=== PATIENT | female | born 1945 | race Caucasian/White ===

== ENCOUNTER 2020-08-09 10:19 | Outpatient (REF) | payer MEDICARE, SELFPAY ==
[2020-08-09 11:32] LABS: MANUAL DIFF FLAG NO
[2020-08-09 11:35] LABS: Basophils Absolute Auto 0.1 X10*3/uL (0.0-0.2); Basophils Percent Auto 0.8 % (0-2); Eosinophils Absolute Auto 0.2 X10*3/uL (0.0-0.4); Eosinophils Percent Auto 3.5 % (0-4); Hematocrit 34.8 % (37-47); Hemoglobin 10.4 g/dl (12.0-16.0); Imm Gran Abs Auto 0.01 X10*3/uL (0.00-0.03); Imm Gran Pct Auto 0.2 % (0.0-0.4); Lymphocytes Absolute Auto 2.4 X10*3/uL (1.2-4.9); Lymphocytes Percent Auto 35.9 % (20-40); Mean Corpuscular HGB Conc 29.9 g/dl (31.0-35.0); Mean Corpuscular Hemoglobin 26.9 pg (27.0-33.0); Mean Corpuscular Volume 89.9 fL (80-98); Mean Platelet Volume 11.6 fL (9.4-12.3); Monocytes Absolute Auto 0.5 X10*3/uL (0.1-1.2); Monocytes Percent Auto 6.9 % (2-11); Neutrophils Absolute Auto 3.5 X10*3/uL (2.0-8.3); Neutrophils Percent Auto 52.7 % (45-73); Platelet Count 200 X10*3/uL (160-400); Red Blood Count 3.87 X10*6/uL (4.20-5.50); Red Cell Distribution Width 15.8 % (11.0-16.0); White Blood Count 6.5 X10*3/uL (4.8-10.8)
[2020-08-09 12:05] LABS: Alanine Aminotransferase 6 U/L (0-31); Albumin Level 3.5 g/dL (3.5-5.0); Alkaline Phosphatase 105 U/L (39-117); Anion Gap 13 (12-20); Aspartate Amino Transferase 12 U/L (5-31); Bilirubin Total 0.4 mg/dL (0.0-1.0); Blood Urea Nitrogen 18 mg/dL (9-16); C Reactive Protein 0.45 mg/dL (< or = 0.50); Calcium 8.4 mg/dL (8.4-10.2); Carbon Dioxide 30 mmol/L (22-29); Chloride 101 mmol/L (96-108); Estimated Glomerular Filt Rate 38; Glucose Random 335 mg/dL (60-115); Sodium 140 mmol/L (135-145)
[2020-08-09 12:24] LABS: Erythrocyte Sedimentation Rate 33 MM/HR (0-20)
== END 2020-08-09 10:20 | disposition home or self-care (01) ==
LOC: HO.LAB 10:19
PROVIDERS: PCP Internal Medicine; Referring Provider Internal Medicine; Visit Provider Student in an Organized Health Care Education/Training Program
DX: M35.3 Polymyalgia rheumatica (principal); M79.7 Fibromyalgia
CPT/HCPCS: 36415; 80053; 85025; 85652; 86140; 99212

== ENCOUNTER 2021-05-20 10:56 | Emergency (ER) | payer MEDICARE, SELFPAY ==
[2021-05-20 11:34] VITALS: BP 119/62; PULSE 92; RESP 18; TEMP 36.4; O2SAT 98; BMI 26.5
--- NOTE | 2021-05-20 11:39 | ED.GENADULT ---
HPI - General Adult General Chief complaint: General Medical Stated complaint: MEDICATION REFILLS Time Seen by Provider: 05/20/21 11:39 Source: patient Mode of arrival: ambulatory Limitations: no limitations History of Present Illness HPI narrative: 76 y/o female with history of fibromyalgia, polymyalgia rheumatica, DM, HTN, HLD who presents to the ER request refills on her multiple medications. She just moved back to [place] from [place] and there are issues with her doctor's office in [place] accepting her supplemental insurance. Her daughter is here with her today and is working on the issue now that she moved back home. [place] was in the airport [place] 18 hours without refrigerating her insulin so she has not taken it in a few days. Her glucose has been running in the high 200s. She otherwise has no physical complaints except anxiety about not having her meds or being able to see her doctor. MD complaint: med refills Relieving factors: none Exacerbating factors: none Associated symptoms: denies other symptoms Treatments prior to arrival: none Related Data Home Medications Medication Instructions Recorded Confirmed albuterol sulfate 2.5 mg INHALATION Q4-6H PRN 08/09/20 albuterol sulfate 90 mcg/actuation 2 puff INHALATION Q6H PRN 08/09/20 aerosol inhaler aspirin 81 mg tablet,delayed 81 mg PO DAILY 08/09/20 release (Enteric Coated Aspirin) atorvastatin 40 mg tablet 40 mg PO DAILY 08/09/20 calcium carbonate 600 mg (1,500 1 tab PO DAILY 08/09/20 mg)-vitamin D3 400 unit tablet (Calcium 600 + D(3)) cetirizine 10 mg capsule (All Day mg PO DAILY cap 08/09/20 Allergy (cetirizine)) clopidogrel 75 mg tablet 75 mg PO DAILY 08/09/20 famotidine 20 mg tablet 20 mg PO DAILY 08/09/20 hydrochlorothiazide 25 mg tablet 25 mg PO DAILY 08/09/20 insulin glargine 100 unit/mL (3 10 unit SUBCUT QPM 08/09/20 mL) subcutaneous pen (Lantus Solostar U-100 Insulin) metoprolol tartrate 100 mg tablet 100 mg PO DAILY 08/09/20 tolterodine 4 mg capsule,extended 4 mg PO DAILY 08/09/20 release 24 hr valsartan 80 mg tablet 80 mg PO DAILY 08/09/20 Previous Rx's Medication Instructions Recorded baclofen 10 mg tablet 5 mg PO BEDTIME #15 tab 06/27/20 tramadol 50 mg tablet 50 mg PO BID PRN #60 tab 06/27/20 gabapentin 600 mg tablet 600 mg PO TID #84 tab 08/23/20 omeprazole 20 mg capsule,delayed 20 mg PO BID #60 cap 12/15/20 release amitriptyline 25 mg tablet 25 mg PO BEDTIME #30 tab 02/21/21 folic acid 1 mg tablet 1 mg PO DAILY #96 tab 03/06/21 amitriptyline 25 mg tablet 25 mg PO BEDTIME #30 tab 05/20/21 aspirin 81 mg tablet,delayed 81 mg PO DAILY #30 tab 05/20/21 release atorvastatin 40 mg tablet 40 mg PO BEDTIME #30 tab 05/20/21 clopidogrel 75 mg tablet (Plavix) 75 mg PO DAILY #30 tab 05/20/21 hydrochlorothiazide 25 mg tablet 25 mg PO QAM #30 tab 05/20/21 insulin aspart U-100 100 unit/mL 1 sliding scale dose SUBCUT AC #15 05/20/21 subcutaneous cartridge (Novolog ml PenFill U-100 Insulin aspart) insulin glargine 100 unit/mL 20 unit SUBCUT QPM #10 ml 05/20/21 subcutaneous solution (Lantus U-100 Insulin) metformin 1,000 mg tablet,extended 1,000 mg PO BID #60 tab 05/20/21 release 24hr tolterodine 4 mg capsule,extended 4 mg PO DAILY #30 cap 05/20/21 release 24 hr valsartan 40 mg tablet 40 mg PO DAILY #30 tab 05/20/21 Allergies Allergy/AdvReac Type Severity Reaction Status Date / Time morphine [Morphine] Allergy Unknown UNKNOWN, Verified 05/20/21 11:36 nausea and vomiting Iodinated Contrast Media AdvReac Mild SHAKING, Verified 05/20/21 11:36 [IV Dye, Iodine Containing VOMITING Contrast ] IV dye Allergy Unknown Vomiting Uncoded 05/20/21 11:36 Review of Systems Review of Systems: Constitutional: No Fever, No Chills Cardiovascular: No Chest Pain, No SOB Respiratory: No Cough, No Sputum Gastrointestinal: No Nausea, No Vomiting, No Diarrhea, No abdominal Pain Musculoskeletal: + joint pain, No Myalgias Skin: No Skin Lesions, No rash Neuro: No Weakness, No Numbness, No Dizziness, No Headache Psych: + Anxiety/Panic, No Depression Endocrine: No Polyuria, No Polydipsia [facility] Past Medical History Medical History (Updated 05/20/21 @ 11:58 by VICENTA Cotton) A-fib CAD (coronary artery disease) COPD (chronic obstructive pulmonary disease) Diabetes Fibromyalgia HTN (hypertension) Hypercholesterolemia Polymyalgia rheumatica Scoliosis Sleep apnea Surgical History Hx of appendectomy Hx of hysterectomy Hx of tubal ligation Family History Family History (Updated 10/03/20 @ 07:36 by Nahomy Henderson) Mother Heart disease Sister Stomach cancer Daughter Breast cancer Social History Social History (Updated 08/09/20 @ 10:38 by Jose Do LPN) Alcohol intake: never Advance Directives: No Advance Directives Information Provided: Yes Physical Exam Vital Signs: Vital Signs: Last Vital Signs Temp 97.5 F 05/20/21 11:34 Pulse 92 05/20/21 11:34 Resp 18 05/20/21 11:34 BP 119/62 05/20/21 11:34 Pulse Ox 98 05/20/21 11:34 Body Mass Index 26.5 Appearance: Alert. Oriented X3. No acute distress. HEENT: normal inspection CVS: Normal heart rate and rhythm. Pulses normal. Respiratory: No respiratory distress. Skin: Skin warm and dry. Normal skin color. Normal skin turgor. No rashes. Extremities: atraumatic, no LE edema Neuro: Oriented X 3. No motor deficit. No sensory deficit. Course Course Course Narrative: 76 yo female presenting for medication refills including valsartan, HCTZ, aspirin, plavix, lantus, novolog SS, among others. Glucose 177 today. We discussed the importance of following up with her doctor and the daughter feels like the insurance issue should be resolved soon. She is hemodynamically stable and appears well. Meds were refilled for one month to give ample time to see her doctor. 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 Prescriptions: New atorvastatin 40 mg tablet 40 mg PO BEDTIME Qty: 30 RF: 0 amitriptyline 25 mg tablet 25 mg PO BEDTIME Qty: 30 RF: 0 hydrochlorothiazide 25 mg tablet 25 mg PO QAM Qty: 30 RF: 0 valsartan 40 mg tablet 40 mg PO DAILY Qty: 30 RF: 0 clopidogrel [Plavix] 75 mg tablet 75 mg PO DAILY Qty: 30 RF: 0 metformin 1,000 mg tablet extended release 24hr 1,000 mg PO BID Qty: 60 RF: 0 tolterodine 4 mg capsule,extended release 24hr 4 mg PO DAILY Qty: 30 RF: 0 aspirin 81 mg tablet,delayed release (DR/EC) 81 mg PO DAILY Qty: 30 RF: 0 Lantus U-100 Insulin 100 unit/mL solution 20 unit subcut QPM Qty: 10 RF: 0 insulin aspart U-100 [Novolog PenFill U-100 Insulin] 100 unit/mL cartridge 1 sliding scale dose subcut AC Qty: 15 RF: 0 No Action baclofen 10 mg tablet 5 mg PO BEDTIME Qty: 15 RF: 3 tramadol 50 mg tablet 50 mg PO BID PRN (Reason: pain) Qty: 60 RF: 5 gabapentin 600 mg tablet 600 mg PO TID Qty: 84 RF: 4 omeprazole 20 mg capsule,delayed release(DR/EC) 20 mg PO BID Qty: 60 RF: 5 amitriptyline 25 mg tablet 25 mg PO BEDTIME Qty: 30 RF: 3 folic acid 1 mg tablet 1 mg PO DAILY Qty: 96 RF: 0 calcium carbonate-vitamin D3 [Calcium 600 + D(3)] 600 mg(1,500mg) -400 unit tablet 1 tab PO DAILY RF: 0 valsartan 80 mg tablet 80 mg PO DAILY RF: 0 tolterodine 4 mg capsule,extended release 24hr 4 mg PO DAILY RF: 0 famotidine 20 mg tablet 20 mg PO DAILY RF: 0 clopidogrel 75 mg tablet 75 mg PO DAILY RF: 0 atorvastatin 40 mg tablet 40 mg PO DAILY RF: 0 albuterol sulfate 90 mcg/actuation HFA aerosol inhaler 2 puff inhalation Q6H PRNRF: 0 albuterol sulfate 2.5 mg /3 mL (0.083 %) solution for nebulization 2.5 mg inhalation Q4-6H PRNRF: 0 hydrochlorothiazide 25 mg tablet 25 mg PO DAILY RF: 0 All Day Allergy (cetirizine) 10 mg capsule PO DAILY RF: 0 aspirin [Enteric Coated Aspirin] 81 mg tablet,delayed release (DR/EC) 81 mg PO DAILY RF: 0 Lantus Solostar U-100 Insulin 100 unit/mL (3 mL) insulin pen 10 unit subcut QPM RF: 0 metoprolol tartrate 100 mg tablet 100 mg PO DAILY RF: 0 Interventions: ED Discharge Assessment Last Done: 05/20/21 12:00 Discharge Date/Time: 05/20/21 12:02
[2021-05-20 11:58] LABS: Glucose, Whole Blood 177 mg/dL (60-115)
== END 2021-05-20 12:02 | disposition home or self-care (01) ==
PROVIDERS: Emergency Provider Internal Medicine
DX: M35.3 Polymyalgia rheumatica (principal); E11.69 Type 2 diabetes mellitus with other specified complication; Z79.899 Other long term (current) drug therapy; Z79.4 Long term (current) use of insulin
CPT/HCPCS: 82947; 99283

== ENCOUNTER 2021-06-24 08:40 | Emergency (ER) | payer MEDICARE, MEDICAID, SELFPAY ==
[2021-06-24 09:03] VITALS: BP 173/63; PULSE 74; RESP 20; TEMP 36.2; O2SAT 100; BMI 25.2
--- NOTE | 2021-06-24 09:26 | ED.BACK ---
HPI - Back Pain/Injury General Chief Complaint: Back Pain/Injury Stated Complaint: lt side back & leg pain Time Seen by Provider: 06/24/21 09:13 Source: patient and family Mode of arrival: ambulatory Limitations: no limitations History of Present Illness MD elicited complaint: back pain Pertinent past history: prior back pain and other (chronic pain ran out of her pain medications about 1 week ago) Onset (ago): week(s) (1) Timing: progressively worsening Severity: moderate Similar Symptoms Previously: Yes Quality: dull and aching Location: left lower back (left hip and buttock) Radiation: buttocks and left upper leg Exacerbating factors: movement Relieving factors: none Context: other (chronic but usually her medications treat it) Associated symptoms: denies other symptoms Work related injury: No Related Data Home Medications Medication Instructions Recorded Confirmed albuterol sulfate 2.5 mg INHALATION Q4-6H PRN 08/09/20 albuterol sulfate 90 mcg/actuation 2 puff INHALATION Q6H PRN 08/09/20 aerosol inhaler aspirin 81 mg tablet,delayed 81 mg PO DAILY 08/09/20 release (Enteric Coated Aspirin) atorvastatin 40 mg tablet 40 mg PO DAILY 08/09/20 calcium carbonate 600 mg (1,500 1 tab PO DAILY 08/09/20 mg)-vitamin D3 400 unit tablet (Calcium 600 + D(3)) cetirizine 10 mg capsule (All Day mg PO DAILY cap 08/09/20 Allergy (cetirizine)) clopidogrel 75 mg tablet 75 mg PO DAILY 08/09/20 famotidine 20 mg tablet 20 mg PO DAILY 08/09/20 hydrochlorothiazide 25 mg tablet 25 mg PO DAILY 08/09/20 insulin glargine 100 unit/mL (3 10 unit SUBCUT QPM 08/09/20 mL) subcutaneous pen (Lantus Solostar U-100 Insulin) metoprolol tartrate 100 mg tablet 100 mg PO DAILY 08/09/20 tolterodine 4 mg capsule,extended 4 mg PO DAILY 08/09/20 release 24 hr valsartan 80 mg tablet 80 mg PO DAILY 08/09/20 Previous Rx's Medication Instructions Recorded baclofen 10 mg tablet 5 mg PO BEDTIME #15 tab 06/27/20 tramadol 50 mg tablet 50 mg PO BID PRN #60 tab 06/27/20 gabapentin 600 mg tablet 600 mg PO TID #84 tab 08/23/20 omeprazole 20 mg capsule,delayed 20 mg PO BID #60 cap 12/15/20 release amitriptyline 25 mg tablet 25 mg PO BEDTIME #30 tab 02/21/21 folic acid 1 mg tablet 1 mg PO DAILY #96 tab 03/06/21 amitriptyline 25 mg tablet 25 mg PO BEDTIME #30 tab 05/20/21 aspirin 81 mg tablet,delayed 81 mg PO DAILY #30 tab 05/20/21 release atorvastatin 40 mg tablet 40 mg PO BEDTIME #30 tab 05/20/21 clopidogrel 75 mg tablet (Plavix) 75 mg PO DAILY #30 tab 05/20/21 hydrochlorothiazide 25 mg tablet 25 mg PO QAM #30 tab 05/20/21 insulin aspart U-100 100 unit/mL 1 sliding scale dose SUBCUT AC #15 05/20/21 subcutaneous cartridge (Novolog ml PenFill U-100 Insulin aspart) insulin glargine 100 unit/mL 20 unit (0.2 mL) SUBCUT QPM #10 ml 05/20/21 subcutaneous solution (Lantus U-100 Insulin) metformin 1,000 mg tablet,extended 1,000 mg PO BID #60 tab 05/20/21 release 24hr tolterodine 4 mg capsule,extended 4 mg PO DAILY #30 cap 05/20/21 release 24 hr valsartan 40 mg tablet 40 mg PO DAILY #30 tab 05/20/21 baclofen 5 mg tablet 5 mg PO BEDTIME 4 Days #4 tab 06/24/21 gabapentin 600 mg tablet 600 mg PO TID 4 Days #12 tab 06/24/21 tramadol 50 mg tablet 50 mg PO Q8H PRN 4 Days #12 tab 06/24/21 Allergies Allergy/AdvReac Type Severity Reaction Status Date / Time morphine [Morphine] Allergy Unknown UNKNOWN, Verified 05/20/21 11:36 nausea and vomiting Iodinated Contrast Media AdvReac Mild SHAKING, Verified 05/20/21 11:36 [IV Dye, Iodine Containing VOMITING Contrast ] IV dye Allergy Unknown Vomiting Uncoded 05/20/21 11:36 Review of Systems Review of Systems: Constitutional : No Weight loss, No Fever, No Chills, ENT/Mouth : No Hearing loss, No Ear Pain, No Nasal Congestion, No Sinus Pain, No Hoarseness, No sore throat, No Rhinorrhea, No Swallowing Difficulty Cardiovascular : No Chest Pain, No SOB Respiratory : No Cough, No Dyspnea Gastrointestinal : No Nausea, No Vomiting, No Diarrhea, No abdominal Pain, No Hematochezia, No Melena Genitourinary : No Dysuria, No Urinary Frequency, No Hematuria, No Urinary Incontinence, Musculoskeletal : positive back pain Skin : No Skin Lesions, No rash Neuro : No Weakness, No Numbness, No Paresthesias, no loss of bowel or bladder incontinence, no saddle anesthesia [facility] Past Medical History Attestation statement: The following information was validated with the patient. Medical History A-fib CAD (coronary artery disease) COPD (chronic obstructive pulmonary disease) Diabetes Fibromyalgia HTN (hypertension) Hypercholesterolemia Myocardial infarct, old Polymyalgia rheumatica Scoliosis Sleep apnea Surgical History Hx of appendectomy Hx of hysterectomy Hx of tubal ligation Family History Family History (Updated 10/03/20 @ 07:36 by Nahomy Henderson) Mother Heart disease Sister Stomach cancer Daughter Breast cancer Social History Social History (Updated 06/24/21 @ 09:35 by Jazmyne Singh DO) Alcohol intake: never Patient Tobacco Use Status: Tobacco use Unknown Advance Directives: No Physical Exam Vital Signs: Vital Signs: Last Vital Signs Temp 97.1 F 06/24/21 09:03 Pulse 74 06/24/21 09:03 Resp 20 06/24/21 09:03 BP 173/63 H 06/24/21 09:03 Pulse Ox 100 06/24/21 09:03 Body Mass Index 25.2 Appearance: Alert. Oriented X3. No acute distress. Eyes: Pupils equal, round and reactive to light. ENT: Pharynx normal. Neck: Normal inspection. Neck supple. CVS: Normal heart rate and rhythm. Pulses normal. Respiratory: No respiratory distress. Breath sounds normal. Abdomen: Soft and nontender. Skin: Skin warm and dry. Normal skin color. Normal skin turgor. Extremities: No lower extremity edema. 2+ bilateral patella reflexes 5/5 L 5 bilaterally, SILT inner thigh, pain along L buttock and L hip Neuro: Oriented X 3. No motor deficit. No sensory deficit. MDM - Back Pain/Injury MDM Narrative Medical decision making narrative: 76 yo female with chronic pain conditions including PMR and fibromyalgia as well as chronic L hip/sciatica pain - she just came back from [place] and doesn't have her gabapentin/tramadol/baclofen - she ran out 1 week ago and her L hip pain has worsened. She does not use IVDA, have b/b incontinence or saddle anesthesia. She is distal NV intact. No red flag symptoms. No ac therapy - chronic pain but needs her medications will give 4 days worth and refer to local [facility] for new PCP Discharge Plan Discharge Clinical Impression: Sciatica Qualifiers: Laterality: left Qualified Code(s): M54.32 - Sciatica, left side Patient Disposition: Home, Self-Care Instructions: Sciatica (ED), Lower Back Exercises (ED) Additional Instructions: return to ED for any worsening symptoms or concerns Prescriptions: New tramadol 50 mg tablet 50 mg PO Q8H PRN (Reason: pain) 4 Days Qty: 12 RF: 0 gabapentin 600 mg tablet 600 mg PO TID 4 Days Qty: 12 RF: 0 baclofen 5 mg tablet 5 mg PO BEDTIME 4 Days Qty: 4 RF: 0 No Action baclofen 10 mg tablet 5 mg PO BEDTIME Qty: 15 RF: 3 tramadol 50 mg tablet 50 mg PO BID PRN (Reason: pain) Qty: 60 RF: 5 gabapentin 600 mg tablet 600 mg PO TID Qty: 84 RF: 4 omeprazole 20 mg capsule,delayed release(DR/EC) 20 mg PO BID Qty: 60 RF: 5 amitriptyline 25 mg tablet 25 mg PO BEDTIME Qty: 30 RF: 3 folic acid 1 mg tablet 1 mg PO DAILY Qty: 96 RF: 0 atorvastatin 40 mg tablet 40 mg PO BEDTIME Qty: 30 RF: 0 amitriptyline 25 mg tablet 25 mg PO BEDTIME Qty: 30 RF: 0 hydrochlorothiazide 25 mg tablet 25 mg PO QAM Qty: 30 RF: 0 valsartan 40 mg tablet 40 mg PO DAILY Qty: 30 RF: 0 clopidogrel [Plavix] 75 mg tablet 75 mg PO DAILY Qty: 30 RF: 0 metformin 1,000 mg tablet extended release 24hr 1,000 mg PO BID Qty: 60 RF: 0 tolterodine 4 mg capsule,extended release 24hr 4 mg PO DAILY Qty: 30 RF: 0 aspirin 81 mg tablet,delayed release (DR/EC) 81 mg PO DAILY Qty: 30 RF: 0 Lantus U-100 Insulin 100 unit/mL solution 20 unit subcut QPM Qty: 10 RF: 0 insulin aspart U-100 [Novolog PenFill U-100 Insulin] 100 unit/mL cartridge 1 sliding scale dose subcut AC Qty: 15 RF: 0 calcium carbonate-vitamin D3 [Calcium 600 + D(3)] 600 mg(1,500mg) -400 unit tablet 1 tab PO DAILY RF: 0 valsartan 80 mg tablet 80 mg PO DAILY RF: 0 tolterodine 4 mg capsule,extended release 24hr 4 mg PO DAILY RF: 0 famotidine 20 mg tablet 20 mg PO DAILY RF: 0 clopidogrel 75 mg tablet 75 mg PO DAILY RF: 0 atorvastatin 40 mg tablet 40 mg PO DAILY RF: 0 albuterol sulfate 90 mcg/actuation HFA aerosol inhaler 2 puff inhalation Q6H PRNRF: 0 albuterol sulfate 2.5 mg /3 mL (0.083 %) solution for nebulization 2.5 mg inhalation Q4-6H PRNRF: 0 hydrochlorothiazide 25 mg tablet 25 mg PO DAILY RF: 0 All Day Allergy (cetirizine) 10 mg capsule PO DAILY RF: 0 aspirin [Enteric Coated Aspirin] 81 mg tablet,delayed release (DR/EC) 81 mg PO DAILY RF: 0 Lantus Solostar U-100 Insulin 100 unit/mL (3 mL) insulin pen 10 unit subcut QPM RF: 0 metoprolol tartrate 100 mg tablet 100 mg PO DAILY RF: 0 Referrals: Kimani Reynolds MD [Physician] - 2 days (any provider)
[2021-06-24] MEDS: traMADoL HCL 50 MG TABLET PO (09:40)
[2021-06-24] MEDS: Gabapentin 600 MG TABLET PO (09:41)
== END 2021-06-24 09:46 | disposition home or self-care (01) ==
PROVIDERS: Emergency Provider Emergency Medicine
DX: M54.42 Lumbago with sciatica, left side (principal); G89.29 Other chronic pain; E11.9 Type 2 diabetes mellitus without complications; I48.91 Unspecified atrial fibrillation; I10 Essential (primary) hypertension; E78.00 Pure hypercholesterolemia, unspecified; Z79.4 Long term (current) use of insulin; Z79.899 Other long term (current) drug therapy; Z79.02 Long term (current) use of antithrombotics/antiplatelets
CPT/HCPCS: 99283; 99284

== ENCOUNTER 2022-01-29 12:28 | Outpatient (REF) | payer MEDICARE, MEDICAID, SELFPAY ==
--- NOTE | ~2022-01-29 | MM_ITS ---
EXAMINATION: BONE DENSITOMETRY CLINICAL INDICATION: Age-related osteoporosis without current pathological fracture. COMPARISON: Previous BD dated 10/28/2019 and baseline BD dated 01/31/2015. TECHNIQUE: Using a [employer] Radio DXA System (software version: 13.1) manufactured by [employer], dual-energy x-ray absorptiometry was performed of the lumbar spine and left hip. The images are of good technical quality. Summary results are attached. FINDINGS: AP SPINE L1-L4: Current: BMD 1.662 g/cm2, Z-score 4.8, T-score 4.0, normal, 0.1% increase from previous, 21.2% increase from baseline (<5% change is not significant). Prior: BMD 1.661 g/cm2. Baseline: BMD 1.371 g/cm2. LEFT FEMUR, NECK: Current: BMD 0.881 g/cm2, Z-score 0.1, T-score -1.1, osteopenia. Prior: BMD 0.899 g/cm2. Baseline: BMD 0.855 g/cm2. LEFT FEMUR, TOTAL: Current: BMD 1.180 g/cm2, Z-score 2.4, T-score 1.4, normal, 4.5% decrease from previous, 0.5% increase from baseline (<5% change is not significant). Prior: BMD 1.236 g/cm2. Baseline: BMD 1.174 g/cm2. IDENTIFIED RISK FACTORS: Rheumatoid arthritis. Current smoker. Height loss. Secondary osteoporosis (type 1 diabetes, early menopause). Hysterectomy. Bilateral oophorectomy. HISTORY OF FRACTURE: None listed. MEDICATIONS: None listed. MM/XR DEXA axial skeleton IMPRESSION: 1. DIAGNOSIS: Osteopenia based on the lowest T-score value of -1.1 in the femoral neck applying World Health Organization criteria. 2. 10-YEAR FRACTURE RISK PREDICTION, FRAX: Major osteoporotic fracture (clinical spine, forearm, hip or shoulder) 12.1%. Hip fracture 3.2%. 3. Treatment Recommendations: NOF guidelines recommend consideration for treatment in postmenopausal women and men age 50 and older presenting with the following: -A hip or vertebral (clinical or morphometric) fracture. -T-score less than or equal to -2.5 at the femoral neck or spine after appropriate evaluation to exclude secondary causes. -Low bone mass at the hip or spine and a 10-year fracture probability by FRAX of greater than or equal to 3% for hip fracture or greater than or equal to 20% for major osteoporotic fracture based on the [place] adapted WHO algorithm. 4. Other Recommendations: All treatment decisions require clinical judgment and consideration of individual patient factors, including patient preferences, comorbidities, previous drug use, risk factors not captured in the FRAX model (e.g. frailty, falls, vitamin D deficiency, increased bone turnover, interval significant decline in bone density) and possible under or overestimation of fracture risk by FRAX. Additional medical evaluation for secondary cause of low bone mineral density may be appropriate. FUTURE SCAN RECOMMENDATION: People with diagnosed cases of osteoporosis or at high risk for fracture should have regular bone mineral density tests. For patients eligible for Medicare, routine testing is allowed once every 2 years. The testing frequency can be increased to one year for patients who have rapidly progressing disease, those who are receiving or discontinuing medical therapy to restore bone mass, or have additional risk factors.
--- NOTE | ~2022-01-29 | MM_ITS ---
EXAMINATION: MM SCREENING DIGITAL BREAST TOMOSYNTHESIS, BILATERAL CLINICAL INFORMATION: Screening. Asymptomatic. The lifetime risk of breast cancer based on the Tyrer-Cuzick Model is 2%. COMPARISON: Outside mammography: 09/22/2017, 09/19/2016, 09/18/2015 ([facility]). TECHNIQUE: Digital breast tomosynthesis is performed in both the craniocaudal and mediolateral oblique views along with computer-aided detection (CAD). Synthesized 2D images are generated from the tomosynthesis. Additional left MLO view is provided. FINDINGS: There are scattered areas of fibroglandular density (ACR BI-RADS breast composition Category b). Background fibroglandular stromal densities are stable. There is no interval mass or architectural abnormality or abnormal capsular. There are scattered bilateral vascular, round, as well as some regional ductal calcifications anterior to mid outer left breast. No significant changes from prior outside studies. MM/MM tomosynthesis screening BI IMPRESSION: No mammographic evidence of malignancy. ASSESSMENT: BI-RADS 2: Benign RECOMMENDATION: Routine annual mammography screening. This patient's information was entered into a reminder system with a target due date for their next mammogram.
== END 2022-01-29 12:29 | disposition home or self-care (01) ==
LOC: HO.MAMMO 12:28
PROVIDERS: PCP Internal Medicine; Visit Provider Internal Medicine
DX: Z12.31 Encounter for screening mammogram for malignant neoplasm of breast (principal); Z13.820 Encounter for screening for osteoporosis; Z78.0 Asymptomatic menopausal state; M85.80 Other specified disorders of bone density and structure, unspecified site
CPT/HCPCS: 77063; 77067; 77080

== ENCOUNTER 2022-03-11 14:42 | Outpatient (REF) | payer OTHER, SELFPAY ==
--- NOTE | 2022-03-11 | PFT_ITS ---
FLOWS: FEV1 75% predicted at 1.52 L. FVC 80% of predicted at 2.16 L. FEV1 to FVC ratio of 0.70. Positive bronchodilator response. LUNG VOLUMES: Total lung capacity 86% of predicted at 4.22 L. Residual volume 97% of predicted at 2.18 L. Slow vital capacity 76% of predicted at 2.03 L. Expiratory reserve volume 68% of predicted at 0.39 L. Diffusion capacity is severely decreased, diffusion capacity adjusted being moderately decreased after correction for alveolar ventilation. IMPRESSION: Moderate obstructive ventilatory defect with positive bronchodilator response. Decreased diffusion capacity suggests emphysema. Sreekanth Wood MD AP/MODL / [id number]
== END 2022-03-11 14:43 | disposition home or self-care (01) ==
LOC: HO.RESP 14:42
PROVIDERS: PCP Internal Medicine; Visit Provider Internal Medicine
DX: J44.9 Chronic obstructive pulmonary disease, unspecified (principal); F17.210 Nicotine dependence, cigarettes, uncomplicated
CPT/HCPCS: 94060; 94727; 94729

== ENCOUNTER 2022-04-09 10:48 | Outpatient (REF) | payer OTHER, SELFPAY ==
--- NOTE | ~2022-04-09 | XR_ITS ---
EXAMINATION: XR BILATERAL HIPS CLINICAL INFORMATION: Hip arthritis COMPARISON: Left hip x-ray 2016 TECHNIQUE: AP and frog-leg view of both hips FINDINGS: Bone alignment is normal. There are small osteophytes seen at both hip joints. Joint spaces are otherwise normal. There is evidence of atherosclerotic disease. XR/XR hips TICO min 3V IMPRESSION: Mild bilateral hip arthritis.
--- NOTE | ~2022-04-09 | XR_ITS ---
EXAMINATION: XR LUMBOSACRAL SPINE WITH OBLIQUES CLINICAL INFORMATION: Spinal stenosis COMPARISON: Previous x-ray June 2018 TECHNIQUE: AP, both oblique, and lateral views of the lumbar spine. Lateral view of the lumbosacral junction. FINDINGS: There is mild curvature of the lumbar spine to the right. Bone alignment is otherwise normal. No fracture or dislocation is seen. Disc spaces are normal. There is lower lumbar spine facet arthritis. No pars defect is seen. There is evidence of atherosclerotic disease. XR/XR lumbar spine 4V min IMPRESSION: Mild curvature of the lumbar spine to the right and lower lumbar spine facet osteoarthritis.
[2022-04-09 11:19] LABS: MANUAL DIFF FLAG NO
[2022-04-09 11:53] LABS: Basophils Absolute Auto 0.1 X10*3/uL (0.0-0.2); Basophils Percent Auto 0.8 % (0-2); Eosinophils Absolute Auto 0.2 X10*3/uL (0.0-0.4); Eosinophils Percent Auto 2.3 % (0-4); Hematocrit 37.6 % (37.0-47.0); Hemoglobin 12.3 g/dl (12.0-16.0); Imm Gran Abs Auto 0.05 X10*3/uL (0.00-0.03); Imm Gran Pct Auto 0.8 % (0.0-0.4); Lymphocytes Absolute Auto 2.1 X10*3/uL (1.2-4.9); Lymphocytes Percent Auto 31.1 % (20-40); Mean Corpuscular HGB Conc 32.7 g/dl (31.0-35.0); Mean Corpuscular Hemoglobin 30.4 pg (27.0-33.0); Mean Corpuscular Volume 93.1 fL (80.0-98.0); Mean Platelet Volume 11.6 fL (9.4-12.3); Monocytes Absolute Auto 0.4 X10*3/uL (0.1-1.2); Monocytes Percent Auto 6.1 % (2-11); Neutrophils Absolute Auto 3.9 x10*3/uL (2.0-8.3); Neutrophils Percent Auto 58.9 % (45-73); Platelet Count 171 X10*3/uL (160-400); Red Blood Count 4.04 X10*6/uL (4.20-5.50); Red Cell Distribution Width 13.1 % (11.0-16.0); White Blood Count 6.6 X10*3/uL (4.8-10.8)
[2022-04-09 12:47] LABS: Alanine Aminotransferase 15 U/L (0-31); Albumin Level 3.6 g/dL (3.5-5.0); Alkaline Phosphatase 117 U/L (39-117); Anion Gap 14 (12-20); Aspartate Amino Transferase 12 U/L (5-31); Bilirubin Total 0.4 mg/dL (0.0-1.0); Blood Urea Nitrogen 27 mg/dL (9-16); C Reactive Protein 0.41 mg/dL (< or = 0.50); Calcium 8.8 mg/dL (8.4-10.2); Carbon Dioxide 30 mmol/L (22-29); Chloride 96 mmol/L (96-108); Estimated Glomerular Filt Rate 44; Glucose Random 486 mg/dL (60-115); Potassium 4.4 mmol/L (3.3-5.1); Sodium 136 mmol/L (135-145); Total Protein 6.2 g/dL (6.5-8.0)
[2022-04-09 13:32] LABS: Erythrocyte Sedimentation Rate 27 MM/HR (0-20)
== END 2022-04-09 10:49 | disposition home or self-care (01) ==
LOC: HO.LAB 10:48
PROVIDERS: PCP Internal Medicine; Visit Provider Student in an Organized Health Care Education/Training Program
DX: M16.0 Bilateral primary osteoarthritis of hip (principal); M35.3 Polymyalgia rheumatica; M48.061 Spinal stenosis, lumbar region without neurogenic claudication; M70.62 Trochanteric bursitis, left hip; G62.9 Polyneuropathy, unspecified; Z79.899 Other long term (current) drug therapy
CPT/HCPCS: 20610; 36415; 72110; 73522; 80053; 85025; 85652; 86140; 99212

== ENCOUNTER → 2022-07-16 09:26 | Outpatient (BNVA) | payer OTHER, SELFPAY | PROVIDERS: PCP Internal Medicine; Visit Provider Psychiatry & Neurology Neurology | DX: G62.9 Polyneuropathy, unspecified (principal) | CPT/HCPCS: 99202 ==

== ENCOUNTER 2022-07-18 11:00 | Outpatient (RCR) | payer OTHER, SELFPAY ==
--- NOTE | 2022-06-05 11:55 | MHC.PT.EP ---
[facility] [place] Office [place] Office [place] Office [address] Lexx Gomez [address] [phone] F: [phone] F: [phone] F: [phone] F: [phone] Physical Therapy Plan of Care Date of Evaluation: Date of Surgery: arthroscopic surgery - quite a while ago Diagnosis: spinal stenosis Assessment: Patient is a 77 year old R handed female who presents with s/s consistent with scoliosis, low back pain. She does not work and lives a fairly sedentary life with family assisting with daily activities. Patient past medical history includes back surgery, AFib, and DM among other co-morbidities. Current impairments include pain, posture, ROM, flexibility, strength, activity tolerance and functional mobility. Functional limitations include decreased ability to bend, lift, transfer, stand, walk, and sit. Patient is motivated with good rehab potential. Skilled PT will address impairments and functional limitations in order to achieve goals. 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 Manual therapy to restore motion and function. Therapeutic exercise to improve strength and flexibility. Neuromuscular re-education for posture and balance. Therapeutic activities to return to functional activities of daily living. Electronically signed by: Kimani Frey, PT Please sign and return to therapist. Thank you for your referral.
--- NOTE | 2022-07-30 11:03 | MHC.PT.DC ---
[facility] [place] Office [place] Office [place] Office [address] Lexx Gomez [address] [phone] F: [phone] F: [phone] F: [phone] F: [phone] Physical Therapy Discharge Report Diagnosis: spinal stenosis Date of Surgery: arthroscopic surgery - quite a while ago Date of Evaluation: 06/05/22 Date of Discharge: 07/30/22 Treatments to Date: 9 Cancellations to Date: No Shows to Date: Discharge Status: Improved Function Independent with HEP Discharge Summary: Pt has been less able to consistently attend PT and will transition to HEP at this time. She reports her calves are sore after warm-up, likely because she was walking earlier today so her legs got tired quickly. Overall she is exhibiting improving activity tolerance and increasing LE strength and less LBP. Electronically signed by: Kimani Frey, PT Please sign and return to therapist. Thank you for your referral.
== END 2022-07-30 11:03 | disposition home or self-care (01) ==
LOC: HO.PTCHIC 11:00
PROVIDERS: PCP Internal Medicine; Visit Provider Student in an Organized Health Care Education/Training Program
DX: M48.061 Spinal stenosis, lumbar region without neurogenic claudication (principal)
CPT/HCPCS: 97110; 97112; 97163

== ENCOUNTER → 2022-11-19 07:48 | Outpatient (BNVA) | payer OTHER, SELFPAY | PROVIDERS: PCP Internal Medicine; Visit Provider Student in an Organized Health Care Education/Training Program | DX: M81.0 Age-related osteoporosis without current pathological fracture (principal); M79.7 Fibromyalgia; M70.62 Trochanteric bursitis, left hip | CPT/HCPCS: 99212 ==

== ENCOUNTER 2023-02-04 12:09 | Outpatient (REF) | payer OTHER, SELFPAY ==
--- NOTE | ~2023-02-04 | MM_ITS ---
EXAMINATION: MM SCREENING DIGITAL BREAST TOMOSYNTHESIS, BILATERAL CLINICAL INFORMATION: Screening. Asymptomatic. The lifetime risk of breast cancer based on the Tyrer-Cuzick Model is 5.6%. COMPARISON: Mammography: January 29, 2022 and studies dating back to September 18, 2015 TECHNIQUE: Digital breast tomosynthesis is performed in both the craniocaudal and mediolateral oblique views along with computer-aided detection (CAD). Synthesized 2D images are generated from the tomosynthesis. FINDINGS: There are scattered areas of fibroglandular density (ACR BI-RADS breast composition Category b). There are no significant masses, abnormal calcifications, or other abnormalities. MM/MM tomosynthesis screening BI IMPRESSION: No significant changes from prior exam. ASSESSMENT: BI-RADS 1: Negative RECOMMENDATION: Routine annual mammography screening. This patient's information was entered into a reminder system with a target due date for their next mammogram.
== END 2023-02-04 12:10 | disposition home or self-care (01) ==
LOC: HO.MAMMO 12:09
PROVIDERS: PCP Internal Medicine; Visit Provider Internal Medicine
DX: Z12.31 Encounter for screening mammogram for malignant neoplasm of breast (principal)
CPT/HCPCS: 77063; 77067

== ENCOUNTER 2024-01-05 11:02 | Outpatient (REF) | payer OTHER, SELFPAY ==
--- NOTE | ~2024-01-05 | XR_ITS ---
EXAMINATION: XR THORACIC SPINE CLINICAL INFORMATION: Pain between scapula after fall one month ago. COMPARISON: Chest 07/02/2019. TECHNIQUE: 3 views of the thoracic spine were obtained. FINDINGS: S-shaped thoracolumbar scoliosis. Dextroscoliosis of the thoracolumbar spine. Multilevel degenerative changes in the thoracic spine. Degenerative changes on very limited images of the cervical spine could be evaluated with dedicated cervical spine radiographs. XR/XR thoracic spine 3V IMPRESSION: S-shaped thoracolumbar scoliosis. Dextroscoliosis of the thoracolumbar spine. Multilevel degenerative changes in the thoracic spine.
== END 2024-01-05 11:03 | disposition home or self-care (01) ==
LOC: HO.XRAY 11:02
PROVIDERS: Visit Provider Registered Nurse
DX: M54.6 Pain in thoracic spine (principal)
CPT/HCPCS: 72072

== ENCOUNTER 2024-02-10 09:49 | Emergency (ER) | payer OTHER, SELFPAY ==
--- NOTE | ~2024-02-10 | CT_ITS ---
EXAMINATION: CT ABDOMEN AND PELVIS WITHOUT CONTRAST CLINICAL INFORMATION: Unexplained weight loss, fecal incontinence. COMPARISON: CT abdomen and pelvis 05/13/2020. TECHNIQUE: Multidetector volumetric imaging was performed from the superior aspect of the liver through the pubic symphysis. Sagittal and coronal reformatted images were obtained on the technologist's workstation. This CT examination was performed using dose optimization techniques as appropriate, variously including the following: *Automated exposure control *Adjustment of mA and/or kV according to patient size (this includes techniques or standardized protocols for targeted exams where dose is matched to indication/reason for exam; i.e. extremities or head) *Use of iterative reconstruction technique DLP: 535 mGy-cm FINDINGS: LUNG BASES: The visualized lung bases are unremarkable. LIVER, GALLBLADDER, AND BILIARY TREE: The liver is normal in size, shape, and attenuation. No focal hepatic lesion or biliary ductal dilatation is present. Cholecystectomy. PANCREAS: No discrete pancreatic mass or pancreatic ductal dilatation. SPLEEN: Unremarkable. ADRENAL GLANDS: No adrenal mass. KIDNEYS AND URETERS: Small hyperdense parapelvic cyst in the upper right kidney is stable compared to prior measuring 1.0 cm and 75 HU. No nephrolithiasis or hydroureteronephrosis. BLADDER: Air within the urinary bladder has a scalloped appearance suggesting this is intramural rather than intraluminal. This is a new finding compared to prior. GASTROINTESTINAL TRACT: The small and large bowel are normal in caliber. There is fecalization of distal small bowel contents which may indicate delayed intestinal transit. No visible obstruction is seen. No acute inflammatory changes. ABDOMINAL WALL: No significant hernia is appreciated. LYMPH NODES: No pathologically enlarged lymph nodes visible. VASCULAR: Moderate aortoiliac atherosclerotic calcium. No aneurysm. PELVIC VISCERA: Hysterectomy. No pelvic mass. OSSEOUS STRUCTURES: Degenerative changes in the spine. CT/CT abdomen pelvis wo IV con IMPRESSION: Air within the anterior urinary bladder wall which may relate to emphysematous cystitis. Correlation with urinalysis recommended. Urology consultation recommended. Fecalization of distal small bowel may indicate delayed intestinal transit. No visible obstruction. Fleischner guidelines were followed.
--- NOTE | ~2024-02-10 | MR_ITS ---
EXAMINATION: MR LUMBAR SPINE WITHOUT CONTRAST CLINICAL INFORMATION: Lower back pain. New incontinence. COMPARISON: Lumbar spine radiograph from 04/09/2022. Lumbar spine MRI from 07/03/2018. CT abdomen and pelvis from 02/10/2024. TECHNIQUE: MRI of the lumbar spine was obtained using routine sequences without contrast. FINDINGS: Moderately motion degraded exam. Moderate right convex curvature of the lumbar spine. Mild degenerative retrolisthesis of L1 on L2. Animal degenerative grade 1 anterolisthesis of L4 on L5. Advanced degenerative disc disease at T11-T12 and L1-L2. Mild to moderate degenerative disc disease at all additional levels. Associated mixed Modic type discogenic and plate changes including mild Modic type I discogenic edema at L1-L2. No additional suspicious marrow edema. The vertebral body heights are largely maintained. The conus medullaris terminates at the level of L2. The distal spinal cord is normal in appearance. Moderate subcutaneous edema within the posterior soft tissues the back from T11-S3. No additional significant abnormalities of the paraspinal musculature. Limited evaluation of the intra-abdominal structures without significant abnormalities. The abdominal aorta is of normal contour and caliber. AXIAL SPINAL LEVELS: T12-L1: Shallow diffuse disc bulge. There is mild bilateral facet joint arthropathy. There is mild right and no left neural foraminal stenosis. There is no spinal canal stenosis. L1-L2: Moderate diffuse disc bulge with superimposed bilateral foraminal disc protrusions. There is moderate bilateral facet joint arthropathy. There is moderate bilateral neural foraminal stenosis. There is stenosis of the left subarticular zone with mild spinal canal stenosis centrally. L2-L3: Shallow diffuse disc bulge. There is moderate bilateral facet joint arthropathy. There is mild bilateral neural foraminal stenosis. There is no spinal canal stenosis. L3-L4: Mild diffuse disc bulge. There is moderate bilateral facet joint arthropathy. There is mild to moderate bilateral neural foraminal stenosis. There is no spinal canal stenosis. L4-L5: Mild to moderate diffuse disc bulge exacerbated by uncovering from anterolisthesis. There is severe bilateral facet joint arthropathy. There is moderate bilateral neural foraminal stenosis. There is stenosis of the subarticular zones with no overt spinal canal stenosis centrally. L5-S1: Moderate diffuse disc bulge with superimposed central disc protrusion. There is moderate bilateral facet joint arthropathy. There is moderate bilateral neural foraminal stenosis. There is stenosis of the subarticular zones with no overt spinal canal stenosis centrally. MR/MR lumbar spine wo con IMPRESSION: Moderate multilevel degenerative spondyloarthropathy of the lumbar spine as described in detail above. Most notably, there is mild spinal canal stenosis at L1-L2. Stenoses of the subarticular zones and moderate neural foraminal stenoses at L1-L2, L4-L5, and L5-S1. Overall, degenerative changes appear mildly progressed compared to 2018.
[2024-02-10 10:01] VITALS: BP 127/59; PULSE 85; RESP 18; TEMP 37.2; O2SAT 100; BMI 26.2
--- NOTE | 2024-02-10 10:37 | ED_ITS ---
HPI - General Adult General Chief complaint: General Medical Stated complaint: Sent by PCP - back pain Time Seen by Provider: 02/10/24 10:13 Source: patient and family Mode of arrival: ambulatory Limitations: no limitations History of Present Illness ED Provider: FLAVIO SHELLEY narrative: 78 yo female from home with PMH of arthritis, PMR, CAD, DM, neuropathy, HLD, GERD, HTN not on blood thinners here with c/o 1 month of intermittent R sided back pain , unexplained weight loss of 30lbs in 1 year, and unexplained fecal and chronic urinary incontinence but no saddle anesthesia. No new trauma or falls. Has chronic urinary incontinence but new fecal incontinence. PCP sent in for imaging. Patient states she needs xrays. MD complaint: fecal incontinence Onset (ago): month(s) (1) Radiation: non-radiation Severity: moderate Quality: dull Pain Consistency: intermittent Relieving factors: none Exacerbating factors: other (urination she always notes BM) Associated symptoms: other (weight loss, fatigue) Treatments prior to arrival: none Related Data Home Medications ?Medication ?Instructions ?Recorded ?Confirmed metoprolol tartrate 100 mg tablet 100 mg PO DAILY 08/09/20 07/16/22 esomeprazole magnesium 40 mg 40 mg PO DAILY 07/16/22 07/16/22 capsule,delayed release ferrous sulfate 325 mg (65 mg 0 mg PO 07/16/22 07/16/22 iron) tablet (FeroSul) baclofen 10 mg tablet 10 mg PO BID 11/19/22 magnesium oxide 400 mg (241.3 mg 400 mg PO DAILY 11/19/22 magnesium) tablet mecobalamin (vitamin B12) 500 mcg mcg PO 11/19/22 chewable tablet valsartan 40 mg tablet 40 mg PO DAILY 11/19/22 Previous Rx's ?Medication ?Instructions ?Recorded amitriptyline 25 mg tablet 25 mg PO BEDTIME #30 tabs 05/20/21 aspirin 81 mg tablet,delayed 81 mg PO DAILY #30 tabs 05/20/21 release atorvastatin 40 mg tablet 40 mg PO BEDTIME #30 tabs 05/20/21 clopidogrel 75 mg tablet (Plavix) 75 mg PO DAILY #30 tabs 05/20/21 hydrochlorothiazide 25 mg tablet 25 mg PO QAM #30 tabs 05/20/21 insulin aspart U-100 100 unit/mL 1 sliding scale dose subcut AC #15 05/20/21 subcutaneous cartridge (Novolog mL PenFill U-100 Insulin aspart) metformin 1,000 mg tablet,extended 1,000 mg PO BID #60 tabs 05/20/21 release 24hr (osmotic) tolterodine 4 mg capsule,extended 4 mg PO DAILY #30 caps 05/20/21 release 24 hr gabapentin 600 mg tablet 600 mg PO TID 4 days #12 tabs 06/24/21 alendronate 70 mg tablet 70 mg PO QWEEK #4 tabs 12/04/23 Allergies Allergy/AdvReac Type Severity Reaction Status Date / Time morphine [Morphine] Allergy Unknown UNKNOWN, Verified 02/10/24 10:06 nausea and vomiting Iodinated Contrast Media AdvReac Mild SHAKING, Verified 02/10/24 10:06 [IV Dye, Iodine Containing VOMITING Contrast ] IV dye Allergy Unknown Vomiting Uncoded 11/19/22 08:15 Review of Systems 2 Review of Systems: Constitutional : pos Weight loss, No Fever, No Chills, ENT/Mouth : No Hearing loss, No Ear Pain, No Nasal Congestion, No Sinus Pain, No Hoarseness, No sore throat, No Rhinorrhea, No Swallowing Difficulty Cardiovascular : No Chest Pain, No SOB Respiratory : No Cough, No Dyspnea Gastrointestinal : No Nausea, No Vomiting, No Diarrhea, No abdominal Pain, No Hematochezia, No Melena Genitourinary : No Dysuria, No Urinary Frequency, No Hematuria, No Urinary Incontinence, Musculoskeletal : positive back pain Skin : No Skin Lesions, No rash Neuro : No Weakness, No Numbness, No Paresthesias, pos loss of bowel or bladder incontinence, no saddle anesthesia all other systems reviewed and are negative PMFSH Past Medical History Attestation statement: The following information was validated with the patient. Source: old records reviewed Medical History Myocardial infarct, old Scoliosis Sleep apnea CAD (coronary artery disease) COPD (chronic obstructive pulmonary disease) A-fib Hypercholesterolemia HTN (hypertension) Diabetes Fibromyalgia Polymyalgia rheumatica Surgical History Hx of tubal ligation Hx of hysterectomy Hx of appendectomy Family History Family History Mother Heart disease Sister Stomach cancer Daughter Breast cancer Social History Social History Household Members: Children Alcohol intake: current Alcohol intake frequency: does not drink Patient Tobacco Use Status: Current everyday Tobacco user Cigarette Packs Per Day: 0.5 Cigarettes Per Day: 10 Smoked in Last 30 Days: Yes Use of substances other than those prescribed or required for medical reasons: No Advance Directives: No Advance Directives Information Provided: Yes Do you have a plan to hurt others: No Plan Physical Exam ED Vital Signs: Vital Signs - 24 hr 02/10/24 10:01 Temperature 98.9 F Pulse Rate 85 Respiratory Rate 18 Blood Pressure 127/59 L Pulse Oximetry 100 Oxygen Delivery Method Room Air BMI result Body Mass Index 26.2 Appearance: Alert. Oriented X3. No acute distress. Eyes: Pupils equal, round and reactive to light. ENT: Pharynx normal. Neck: Normal inspection. Neck supple. CVS: Normal heart rate and rhythm. Pulses normal. Respiratory: No respiratory distress. Breath sounds normal. Abdomen: Soft and nontender. Back: no mass or ttp felt Rectal: no tone felt incontinent of stool Skin: Skin warm and dry. Normal skin color. Normal skin turgor. Extremities: No lower extremity edema. SILT inner thigh Neuro: Oriented X 3. No motor deficit. No sensory deficit. Course Course Course Narrative: signed out Jose Luis pending MRI Medications Administered Discontinued Medications Generic Name Dose Route Start Last Admin Trade Name Freq PRN Reason Stop Dose Admin Ceftriaxone Sodium 1 gm/ 50 mls @ 100 mls/hr 02/10/24 11:57 02/10/24 13:19 Sodium Chloride IV 02/10/24 12:26 Infused ONCE ONE Infusion Medical Decision Making Medical Decision Making [facility] Narrative: 78 yo female from home with PMH of arthritis, PMR, CAD, DM, neuropathy, HLD, GERD, HTN not on blood thinners here with c/o stool incontinence and some mild low back pain not on thinners at this time will need basic labs, CT scan of abdomen pelvis for mass and lumbar spine her symptoms have been one month after CT scan may need MRI pending results. Differential Diagnosis Differential Diagnoses: The differential diagnosis associated with the presentation includes mass, spinal lesion, malignancy Admission/Observation Consideration of admission/observation: Escalation of care including admission/observation considered physician observation started 156pm pending MRI Lab Data [facility] Lab Attestation statement: I reviewed the patient's lab results. 02/10/24 10:43 02/10/24 10:43 Labs: Lab Results 02/10/24 02/10/24 02/10/24 Range/Units 10:43 11:29 12:27 WBC 7.5 (4.8-10.8) X10*3/uL RBC 3.47 L (4.20-5.50) X10*6/uL Hgb 11.0 L (12.0-16.0) g/dl Hct 31.6 L (37.0-47.0) % MCV 91.1 (80.0-98.0) fL MCH 31.7 (27.0-33.0) pg MCHC 34.8 (31.0-35.0) g/dl RDW 13.1 (11.0-16.0) % Plt Count 221 D (160-400) X10*3/uL MPV 9.8 (9.4-12.3) fL Immature Gran % (Auto) 0.3 (0.0-0.4) % Neut % (Auto) 76.8 H (45-73) % Lymph % (Auto) 15.6 L (20-40) % Pitt % (Auto) 5.3 (2-11) % Eos % (Auto) 1.3 (0-4) % Baso % (Auto) 0.7 (0-2) % Lymph # (Auto) 1.2 (1.2-4.9) X10*3/uL Pitt # (Auto) 0.4 (0.1-1.2) X10*3/uL Eos # (Auto) 0.1 (0.0-0.4) X10*3/uL Baso # (Auto) 0.1 (0.0-0.2) X10*3/uL Abs Immat Gran (auto) 0.02 (0.00-0.03) X10*3/uL Absolute Neuts (auto) 5.8 (2.0-8.3) x10*3/uL Absolute Nucleated RBC 0.000 (0.0-0.012) X10*3/uL Nucleated RBC % (auto) 0.0 (0.0-0.2) /100WBC Sodium 132 L (135-145) mmol/L Potassium 3.8 (3.3-5.1) mmol/L Chloride 94 L (96-108) mmol/L Carbon Dioxide 28 (22-29) mmol/L Anion Gap 14 (12-20) BUN 20 H (9-16) mg/dL Creatinine 1.07 (0.5-1.4) mg/dL Estim Creat Clear Calc 42.7 Estimated GFR 50 Random Glucose 201 H (60-115) mg/dL Lactic Acid 1.7 (0.5-2.0) mmol/L Calcium 9.0 (8.4-10.2) mg/dL Magnesium 1.8 (1.6-2.6) mg/dL Total Bilirubin 0.2 (0.0-1.0) mg/dL Direct Bilirubin < 0.2 (0.0-0.5) mg/dL AST 12 (5-31) U/L ALT 8 (0-31) U/L Alkaline Phosphatase 88 (39-117) U/L Total Protein 6.2 L (6.5-8.0) g/dL Albumin 3.5 (3.5-5.0) g/dL Lipase 26 (8-78) U/L Urine Color Yellow Urine Appearance Cloudy Urine pH 7.0 (5.0-9.0) Ur Specific [place] 1.010 (1.005-1.025) Urine Protein 30 (1+) H (Neg-Trace) mg/dL Urine Glucose (UA) Negative (Negative) mg/dL Urine Ketones Negative (Negative) mg/dL Urine Blood Negative (Negative) Urine Nitrite Negative (Negative) Ur Leukocyte Esterase Large (3+) H (Negative) Urine RBC 0-2 (0-2) /HPF Urine WBC >50 H (0-5) /HPF Ur Squamous Epith Cells 0-2 (0-2) /HPF Urine Bacteria 4+ (None Seen) Hyaline Casts 0-2 (0-2) /LPF Independent Interpretation I performed an independent interpretation of an: CT Scan (no acute cause) Radiology Impression Discussion of test interpretation with radiology: I have reviewed the radiologist's reading. Independent Historian Clinical information obtained from an independent historian. History obtained from or confirmed by: Other (daughter) External Record Review External record reviewed: Outpatient record Prescription Management I considered prescription management with: Antibiotic Discharge Plan Discharge Clinical Impression: Acute UTI, Fecal incontinence Patient Disposition: Home, Self-Care Instructions: Urinary Tract Infection in Women (ED) Prescriptions: No Action alendronate 70 mg tablet 70 mg PO QWEEK Qty: 4 2RF atorvastatin 40 mg tablet 40 mg PO BEDTIME Qty: 30 0RF amitriptyline 25 mg tablet 25 mg PO BEDTIME Qty: 30 0RF hydrochlorothiazide 25 mg tablet 25 mg PO QAM Qty: 30 0RF clopidogrel [Plavix] 75 mg tablet 75 mg PO DAILY Qty: 30 0RF metformin 1,000 mg tablet extended release 24hr 1,000 mg PO BID Qty: 60 0RF tolterodine 4 mg capsule,extended release 24hr 4 mg PO DAILY Qty: 30 0RF aspirin 81 mg tablet,delayed release (DR/EC) 81 mg PO DAILY Qty: 30 0RF insulin aspart U-100 [Novolog PenFill U-100 Insulin] 100 unit/mL cartridge 1 sliding scale dose subcut AC Qty: 15 0RF Rx Instructions: Glucose 131-180 give 4 units Glucose 181-240 give 8 units Glucose 241-300 give 10 units Glucose 301-350 give 12 units Glucose 351-400 give 16 units Glucose >400 give 20 units and call your doctor gabapentin 600 mg tablet 600 mg PO TID 4 Days Qty: 12 0RF metoprolol tartrate 100 mg tablet 100 mg PO DAILY baclofen 10 mg tablet 10 mg PO BID valsartan 40 mg tablet 40 mg PO DAILY magnesium oxide 400 mg (241.3 mg magnesium) tablet 400 mg PO DAILY mecobalamin (vitamin B12) 500 mcg tablet,chewable PO esomeprazole magnesium 40 mg capsule,delayed release(DR/EC) 40 mg PO DAILY ferrous sulfate [FeroSul] 325 mg (65 mg iron) tablet 0 mg PO Print Language: Moroccan
[2024-02-10 10:47] LABS: MANUAL DIFF FLAG NO
[2024-02-10 10:48] LABS: Basophils Absolute Auto 0.1 X10*3/uL (0.0-0.2); Basophils Percent Auto 0.7 % (0-2); Eosinophils Absolute Auto 0.1 X10*3/uL (0.0-0.4); Eosinophils Percent Auto 1.3 % (0-4); Hematocrit 31.6 % (37.0-47.0); Imm Gran Abs Auto 0.02 X10*3/uL (0.00-0.03); Imm Gran Pct Auto 0.3 % (0.0-0.4); Lymphocytes Absolute Auto 1.2 X10*3/uL (1.2-4.9); Lymphocytes Percent Auto 15.6 % (20-40); Mean Corpuscular HGB Conc 34.8 g/dl (31.0-35.0); Mean Corpuscular Hemoglobin 31.7 pg (27.0-33.0); Mean Corpuscular Volume 91.1 fL (80.0-98.0); Mean Platelet Volume 9.8 fL (9.4-12.3); Monocytes Absolute Auto 0.4 X10*3/uL (0.1-1.2); Monocytes Percent Auto 5.3 % (2-11); Neutrophils Absolute Auto 5.8 x10*3/uL (2.0-8.3); Neutrophils Percent Auto 76.8 % (45-73); Platelet Count 221 X10*3/uL (160-400); Red Blood Count 3.47 X10*6/uL (4.20-5.50); Red Cell Distribution Width 13.1 % (11.0-16.0); White Blood Count 7.5 X10*3/uL (4.8-10.8)
[2024-02-10 11:10] LABS: Alanine Aminotransferase 8 U/L (0-31); Albumin Level 3.5 g/dL (3.5-5.0); Alkaline Phosphatase 88 U/L (39-117); Anion Gap 14 (12-20); Aspartate Amino Transferase 12 U/L (5-31); Bilirubin Direct < 0.2 mg/dL (0.0-0.5); Bilirubin Total 0.2 mg/dL (0.0-1.0); Blood Urea Nitrogen 20 mg/dL (9-16); Carbon Dioxide 28 mmol/L (22-29); Chloride 94 mmol/L (96-108); Creatinine Clr Calc Pharmacy 42.7; Estimated Glomerular Filt Rate 50; Glucose Random 201 mg/dL (60-115); Lipase 26 U/L (8-78); Magnesium 1.8 mg/dL (1.6-2.6); Potassium 3.8 mmol/L (3.3-5.1); Sodium 132 mmol/L (135-145); Total Protein 6.2 g/dL (6.5-8.0)
[2024-02-10 11:42] LABS: Appearance Urine Cloudy; Color Urine Yellow; Glucose Urine UA Negative (Negative); Leukocyte Esterase Urine Large (3+) (Negative); Nitrite Urine Negative (Negative); UMIC TRIGGER UACC YES; Urine Blood Negative (Negative); Urine Ketones Negative (Negative); Urine Protein 30 (1+) mg/dL (Neg-Trace)
[2024-02-10 11:45] LABS: Bacteria Urine 4+ (None Seen); Hyaline Casts Urine 0-2 /LPF (0-2); RBC Urine 0-2 /HPF (0-2); Squamous Epithelial Cell Urine 0-2 /HPF (0-2); UACC Culture Trigger YES; WBC Urine >50 /HPF (0-5)
[2024-02-10] MEDS: cefTRIAXone sodium 1 GM in 0.9 % Sodium Chloride 50 ML IV (12:19)
[2024-02-10 12:45] LABS: Lactic Acid 1.7 mmol/L (0.5-2.0)
[2024-02-10 16:57] VITALS: BP 155/58; PULSE 71; RESP 17; TEMP 36.8; O2SAT 96
[2024-02-10 18:40] VITALS: BP 152/57; PULSE 70; RESP 17; TEMP 36.7; O2SAT 98
[2024-02-10 19:38] VITALS: BP 127/91; PULSE 71; RESP 16; TEMP 36.7; O2SAT 96
[2024-02-10 20:24] VITALS: BP 127/91; PULSE 71; RESP 16; TEMP 36.7; O2SAT 96
== END 2024-02-10 20:25 | disposition home or self-care (01) ==
PROVIDERS: Emergency Medicine; Emergency Provider Internal Medicine; PCP Internal Medicine
DX: N39.0 Urinary tract infection, site not specified (principal); M54.50 Low back pain, unspecified; R10.2 Pelvic and perineal pain; R15.9 Full incontinence of feces; F17.210 Nicotine dependence, cigarettes, uncomplicated; Z79.899 Other long term (current) drug therapy
CPT/HCPCS: 36415; 72148; 74176; 80048; 80076; 81001; 83605; 83690; 83735; 85025; 87040; 87086; 96365; 99284; 99285; J0696

== ENCOUNTER 2024-05-18 09:48 | Outpatient (REF) | payer OTHER, SELFPAY | END 2024-05-18 09:49 | disposition home or self-care (01) | LOC: HO.SH 09:48 | PROVIDERS: Visit Provider Registered Nurse | DX: Z01.118 Encounter for examination of ears and hearing with other abnormal findings (principal); H90.3 Sensorineural hearing loss, bilateral | CPT/HCPCS: 92557; 92567 ==

== ENCOUNTER 2025-03-17 09:31 | Outpatient (REF) | payer OTHER, SELFPAY | END 2025-03-17 09:32 | disposition home or self-care (01) | LOC: HO.MAMMO 09:31 | PROVIDERS: PCP Registered Nurse; Visit Provider Registered Nurse | DX: Z12.31 Encounter for screening mammogram for malignant neoplasm of breast (principal) | CPT/HCPCS: 77063; 77067 ==

== ENCOUNTER → 2025-03-17 10:45 | Outpatient (BNV) | payer OTHER, SELFPAY | PROVIDERS: PCP Registered Nurse; Visit Provider Internal Medicine | DX: Z12.31 Encounter for screening mammogram for malignant neoplasm of breast (principal) | CPT/HCPCS: 77063; 77067 ==